=== PATIENT | male | born 1975 | race Hispanic/Latino ===

== ENCOUNTER 2017-06-08 15:09 | Emergency (ER) | payer SELFPAY ==
[2017-06-08] MEDS ORDERED: Fluorescein Opthalmic Strip ONE (16:03)
[2017-06-08] MEDS ORDERED: Proparacaine 0.5% Opth 15 ML BOT ONE (16:03)
== END 2017-06-08 16:32 | disposition home or self-care (01) ==
LOC: ERS 15:09
DX: T15.11XA Foreign body in conjunctival sac, right eye, initial encounter (principal); H11.421 Conjunctival edema, right eye; X58.XXXA Exposure to other specified factors, initial encounter
CPT/HCPCS: 99283

== ENCOUNTER 2019-07-21 11:58 | Emergency (ER) | payer OTHER, SELFPAY ==
[2019-07-22 13:34] LABS: SARS-CoV-2 MS2 Positive; SARS-CoV-2 N Gene Positive; SARS-CoV-2 S Gene Positive; SARS-CoV-2 orf1ab Positive
== END 2019-07-21 12:45 | disposition home or self-care (01) ==
LOC: ERS 11:58
DX: U07.1 COVID-19 (principal); R05 Cough
CPT/HCPCS: 87635; 99283; U0003